=== PATIENT | male | born 1965 | race Caucasian/White ===

== ENCOUNTER 2017-07-13 07:55 | Emergency (ER) | payer OTHER ==
[2017-07-13 09:01] LABS: ADD MAN DIFF? NO
[2017-07-13 09:08] LABS: WHITE BLOOD COUNT 7.4 10^3/ul (4.8-10.8)
[2017-07-13 09:08] LABS: BASOPHILS % 0.3 % (0.0-2.0); EOSINOPHILS # 0.5 10^3/ul (0.0-0.5); EOSINOPHILS % 6.1 % (0.0-7.0); HEMATOCRIT 28.7 % (42.0-52.0); HEMOGLOBIN 9.9 g/dl (14.0-18.0); LYMPHOCYTES # 1.5 10^3/ul (0.8-2.9); LYMPHOCYTES % 20.8 % (15.0-51.0); MEAN CORPUSCULAR HGB CONC 34.5 g/dl (32.0-37.0); MEAN CORPUSCULAR VOLUME 84.2 fl (82.0-101.0); MEAN PLATELET VOLUME 10.2 fl (7.4-10.4); MONOCYTE # 0.7 10^3/ul (0.3-0.9); MONOCYTES % 9.2 % (0.0-11.0); NEUTROPHIL # 4.7 10^3/ul (1.6-7.5); NEUTROPHILS % 63.5 % (39.0-77.0); PLATELET COUNT 192 10^3/UL (140-415); RED BLOOD COUNT 3.41 10^6/ul (4.70-6.10); RED CELL DISTRIBUTION WIDTH 12.6 % (11.5-14.5)
[2017-07-13 09:22] LABS: ANION GAP 20 (8-16); BLOOD UREA NITROGEN 53 mg/dl (7-20); CALCIUM 8.6 mg/dl (8.4-10.2); CARBON DIOXIDE 21 mmol/L (21-31); CHLORIDE 103 mmol/L (97-110); CREATININE 6.21 mg/dl (0.61-1.24); GLUCOSE 311 mg/dl (70-220); POTASSIUM 4.8 mmol/L (3.5-5.1); SODIUM 139 mmol/L (135-144)
[2017-07-13 09:34] LABS: PROTIME 12.2 Sec (11.9-14.9)
[2017-07-13 09:35] LABS: PARTIAL THROMBOPLASTIN TIME 30.5 Sec (25.0-35.0)
[2017-07-13 10:28] LABS: TROPONIN-I < 0.012 ng/ml (0.00-0.12)
== END 2017-07-13 13:21 | disposition home or self-care (01) ==
LOC: E/R 07:55
DX: T82.41XA Breakdown (mechanical) of vascular dialysis catheter, initial encounter (principal); I10 Essential (primary) hypertension; R73.9 Hyperglycemia, unspecified; R06.02 Shortness of breath; Y62 Failure of sterile precautions during surgical and medical care; Z79.82 Long term (current) use of aspirin
CPT/HCPCS: 36415; 71045; 80048; 84484; 85025; 85610; 85730; 93005; 99285-25

== ENCOUNTER 2017-07-14 07:43 | Emergency (ER) | payer OTHER ==
[2017-07-14] MEDS: HEPARIN 1000 UNITS/ML 10 ML INJ (13:59)
[2017-07-14] MEDS: SOD CHLORIDE 0.9% 500 ML (13:59)
[2017-07-14] MEDS: LIDOCAINE 1% (MDV) 10 ML INJ (13:59)
== END 2017-07-14 16:20 | disposition home or self-care (01) ==
LOC: FTE 07:43
DX: T82.9XXA Unspecified complication of cardiac and vascular prosthetic device, implant and graft, initial encounter (principal); I10 Essential (primary) hypertension; Y62 Failure of sterile precautions during surgical and medical care; Z79.82 Long term (current) use of aspirin
CPT/HCPCS: 36581; 99283-25

== ENCOUNTER 2017-07-14 18:37 | Emergency (ER) | payer OTHER ==
[2017-07-14 20:20] LABS: ADD MAN DIFF? NO
[2017-07-14 20:24] LABS: BASOPHILS % 0.3 % (0.0-2.0); EOSINOPHILS # 0.3 10^3/ul (0.0-0.5); EOSINOPHILS % 2.9 % (0.0-7.0); HEMATOCRIT 35.1 % (42.0-52.0); HEMOGLOBIN 11.6 g/dl (14.0-18.0); LYMPHOCYTES # 1.8 10^3/ul (0.8-2.9); LYMPHOCYTES % 15.6 % (15.0-51.0); MEAN CORPUSCULAR HEMOGLOBIN 28.2 pg (29.0-33.0); MEAN CORPUSCULAR VOLUME 85.2 fl (82.0-101.0); MEAN PLATELET VOLUME 10.2 fl (7.4-10.4); MONOCYTE # 0.9 10^3/ul (0.3-0.9); MONOCYTES % 8.1 % (0.0-11.0); NEUTROPHIL # 8.5 10^3/ul (1.6-7.5); NEUTROPHILS % 72.6 % (39.0-77.0); PLATELET COUNT 231 10^3/UL (140-415); RED BLOOD COUNT 4.12 10^6/ul (4.70-6.10); RED CELL DISTRIBUTION WIDTH 12.5 % (11.5-14.5)
[2017-07-14 20:24] LABS: WHITE BLOOD COUNT 11.7 10^3/ul (4.8-10.8)
[2017-07-14] MEDS: DESMOPRESSIN 16.5 MCG in SOD CHLORIDE 0.9% 50 ML IVPB (20:28)
[2017-07-14 20:44] LABS: ANION GAP 18 (8-16); BLOOD UREA NITROGEN 49 mg/dl (7-20); CARBON DIOXIDE 24 mmol/L (21-31); CHLORIDE 102 mmol/L (97-110); CREATININE 5.83 mg/dl (0.61-1.24); GLUCOSE 208 mg/dl (70-220); POTASSIUM 4.6 mmol/L (3.5-5.1); SODIUM 139 mmol/L (135-144)
[2017-07-14 20:47] LABS: INR 0.93; PROTIME 12.5 Sec (11.9-14.9)
[2017-07-14 20:48] LABS: PARTIAL THROMBOPLASTIN TIME 53.3 Sec (25.0-35.0)
== END 2017-07-14 22:32 | disposition home or self-care (01) ==
LOC: E/R 18:37
DX: T82.838A Hemorrhage due to vascular prosthetic devices, implants and grafts, initial encounter (principal); I10 Essential (primary) hypertension; E11.9 Type 2 diabetes mellitus without complications; Y73.2 Prosthetic and other implants, materials and accessory gastroenterology and urology devices associated with adverse incidents; Z79.82 Long term (current) use of aspirin
CPT/HCPCS: 80048; 85025; 85610; 85730; 96374; 99284-25

== ENCOUNTER 2018-11-09 08:00 | Emergency (ER) | payer MEDICARE, OTHER ==
[2018-11-09] MEDS: TETRACAINE 0.5% 4 ML OPH BOTH EYES (08:51)
== END 2018-11-09 12:55 | disposition home or self-care (01) ==
LOC: FTE 08:00
DX: H53.2 Diplopia (principal); I10 Essential (primary) hypertension; E11.9 Type 2 diabetes mellitus without complications; Z79.4 Long term (current) use of insulin; Z79.82 Long term (current) use of aspirin; Z87.891 Personal history of nicotine dependence
CPT/HCPCS: 76536; 99284-25

== ENCOUNTER 2018-12-09 21:06 | Emergency (ER) | payer MEDICARE, OTHER | END 2018-12-10 00:45 | disposition home or self-care (01) | LOC: FTE 12-10 00:45 | DX: S92.532A Displaced fracture of distal phalanx of left lesser toe(s), initial encounter for closed fracture (principal); L03.032 Cellulitis of left toe; I10 Essential (primary) hypertension; E11.9 Type 2 diabetes mellitus without complications; X58.XXXA Exposure to other specified factors, initial encounter; Y92.9 Unspecified place or not applicable; Z79.4 Long term (current) use of insulin; Z79.82 Long term (current) use of aspirin | CPT/HCPCS: 73630; 73630-LT; 99284-25 ==